=== PATIENT | female | born 1980 | race African-American/Black ===

== ENCOUNTER 2024-03-28 16:32 | Inpatient (IN) | payer OTHER ==
[~2024-03-28 16:32] MED LIST: Iopamidol-370 76% 500 ML MDV (1 ML CHARGE) ONE
[2024-03-28] MEDS ORDERED: fentaNYL 50 mcg/mL 1 mL Vial ONE (17:12)
[2024-03-28] MEDS ORDERED: Morphine 4 MG/ML VIAL ONE ×2 (17:59→19:13)
[2024-03-28 18:04] LABS: #Basophils 0.03 10x3/uL (0.0-0.2); %Basophils 0.4 % (0.0-1.0); %Eosinophils 0.4 % (0.0-10.0); %Lymphocytes 15.9 % (21.0-51.0); %Monocytes 4.5 % (0.0-10.0); %Neutrophils 78.5 % (42.0-75.0); Hematocrit 38.8 % (36.0-47.0); Hemoglobin 12.4 g/dL (12.0-16.0); Mean Corpuscular Hemoglobin 29.4 pg (27.0-31.0); Mean Corpuscular Volume 91.9 fL (78.0-98.0); Mean Platelet Volume 10.5 fL (7.4-10.4); Platelet Count 261 10x3/uL (130-400); RBC Distribution Width 13.7 % (11.5-14.5); Red Blood Cell (RBC) Count 4.22 mill/uL (4.20-5.40)
[2024-03-28 18:15] LABS: BHCG - Serum Negative (NEGATIVE); Pregs Control Background? CLEAR/WHITE (CLR/WHITE); Pregs Control Bar Appear? YES (CONTROL BAR)
[2024-03-28 18:20] LABS: ALT (SGPT) 78 U/L (8-55); AST (SGOT) 91 U/L (5-34); Albumin 4.1 g/dL (3.5-5.0); Alkaline Phosphatase 55 U/L (40-110); Anion Gap 10 mmol/L (10-20); BUN (Urea Nitrogen) 16 mg/dL (7.0-18.7); Bilirubin, Total 0.4 mg/dL (0.2-1.2); Calc. Creatinine Clearance 0 mL/min (70-130); Calcium 9.2 mg/dL (7.8-10.44); Carbon Dioxide 24 mmol/L (22-29); Chloride 108 mmol/L (98-107); Estimated GFR 83; Globulin 3.3 g/dL (2.4-3.5); Glucose 92 mg/dL (70-105); Lipase 57 U/L (8-78); Protein, Total 7.4 g/dL (6.0-8.3); Sodium 138 mmol/L (136-145)
[2024-03-28 21:01] LABS: Bacteria/HPF None Seen HPF (None Seen); Bilirubin Negative (Negative); Blood, Urine Negative (Negative); CAUTI Indications for Culture Pelvic or flank pain; Clarity Clear (Clear); Glucose, Urine (Dipstick) Normal (Negative); Ketone, Urine Negative (Negative); Leukocyte Negative Leu/uL (Negative); Nitrite Negative (Negative); Protein, Urine (Dipstick) Negative (Neg-Trace); RBC/HPF None Seen HPF (0-3); Specific Gravity, Urine 1.028 (1.002-1.036); Squamous Epithelial 0-3 HPF (0-3); Urobilinogen Normal mg/dL (Less than 2); WBC/HPF None Seen HPF (0-3); pH, Urine 7.5 (5.0-9.0)
[2024-03-28 21:02] LABS: Urine Culture Reflex No No
[2024-03-28] MEDS ORDERED: Ipratropium/Albuterol 3 ML NEB NEB PRN (21:21)
[2024-03-28] MEDS ORDERED: Morphine 4 MG/ML VIAL SLOW IVP PRN (21:21)
[2024-03-28] MEDS ORDERED: Morphine 2 MG/ML VIAL SLOW IVP PRN (21:21)
[2024-03-28] MEDS: traMADol HCl 50 MG TAB PO SCH (23:42)
[2024-03-28] MEDS: Ondansetron PF 4 MG/2 ML Vial IVP PRN (23:42)
[2024-03-28] MEDS: Acetaminophen 325 MG TAB PO SCH (23:44)
[2024-03-28] MEDS: Cyclobenzaprine 10 MG TAB PO PRN (23:45)
[2024-03-28] MEDS: Ketorolac Tromethamine 30 MG (1 mL) VIAL IVP SCH (23:45)
[2024-03-28] MEDS: Sodium Chloride 0.9% 1,000 ML IV SCH (23:46)
[2024-03-29 04:01] VITALS: BMI 27.3
[2024-03-29 05:30] LABS: #Basophils Less than 0.03 10x3/uL (0.0-0.2); %Basophils 0.4 % (0.0-1.0); %Eosinophils 1.2 % (0.0-10.0); %Lymphocytes 30.7 % (21.0-51.0); %Monocytes 6.8 % (0.0-10.0); %Neutrophils 60.9 % (42.0-75.0); Hematocrit 36.3 % (36.0-47.0); Hemoglobin 11.5 g/dL (12.0-16.0); Mean Corpuscular HGB CONC 31.7 g/dL (32.0-36.0); Mean Corpuscular Volume 91.4 fL (78.0-98.0); Mean Platelet Volume 10.3 fL (7.4-10.4); Platelet Count 239 10x3/uL (130-400); RBC Distribution Width 13.6 % (11.5-14.5); Red Blood Cell (RBC) Count 3.97 mill/uL (4.20-5.40)
[2024-03-29 05:40] LABS: INR-International Normal Ratio 1.1; PTT 29.5 sec (22.9-36.1); Prothrombin Time 13.7 sec (12.0-14.7)
[2024-03-29 05:48] LABS: Anion Gap 10 mmol/L (10-20); BUN (Urea Nitrogen) 11 mg/dL (7.0-18.7); Calc. Creatinine Clearance 102 mL/min (70-130); Calcium 8.6 mg/dL (7.8-10.44); Carbon Dioxide 24 mmol/L (22-29); Chloride 110 mmol/L (98-107); Estimated GFR 86; Glucose 103 mg/dL (70-105); Potassium 3.9 mmol/L (3.5-5.1); Sodium 140 mmol/L (136-145)
[2024-03-29] MEDS ORDERED: Gabapentin 300 MG CAP PO SCH (09:00)
[2024-03-29] MEDS: Senokot S 8.6-50 MG TAB PO SCH (09:06)
[2024-03-29] MEDS: Famotidine/PF 20 mg/2ml Vial SLOW IVP SCH (09:06)
[2024-03-29] MEDS: Gabapentin 300 MG CAP PO SCH (09:07)
[2024-03-29] MEDS: Polyethylene Glycol 3350 17 GM Packet PO SCH (09:08)
[2024-03-30] MEDS: HYDROcodone/Acetaminophen 5/325 mg Tablet PO PRN (09:19)
[2024-03-30] MEDS: Acetaminophen 650 MG/20.3 ML UDCUP PO SCH (09:24)
[2024-03-30] MEDS ORDERED: Ibuprofen 200 MG TAB PO PRN (11:49)
[2024-03-30] MEDS: Ibuprofen 600 MG TAB PO PRN (12:58)
[2024-03-31] MEDS: Famotidine 20 MG TAB PO SCH (09:10)
[2024-03-31] MEDS: FLU (Fluarix Triv) TS24-25(6MOS UP)/PF 45 MCG/0.5 ML Syringe IM ONE (09:12)
[2024-03-31 17:57] VITALS: BP 146/81; TEMP 97.8
== END 2024-03-31 17:50 | disposition home or self-care (01) | DRG 185 ==
LOC: EDBD 16:32 → ERS 16:32 → SURG B 21:23
PROVIDERS: ADMIT Surgery; ATTEND Surgery
DX: S22.41XA Multiple fractures of ribs, right side, initial encounter for closed fracture (principal); W18.30XA Fall on same level, unspecified, initial encounter; R33.9 Retention of urine, unspecified; Z79.899 Other long term (current) drug therapy
CPT/HCPCS: 36415; 36416; 51702; 71045; 72148; 74177; 80048; 80053; 81001; 83690; 84703; 85025; 85610; 85730; 90656; 93005; 96374; 96375; 96376; G0390; J1885; J2272; J2405; J3010; J3490; J7030; Q9967